=== PATIENT | female | born 1990 | race Caucasian/White ===

== ENCOUNTER 2018-12-16 02:35 | Emergency (ER) | payer MEDICAID ==
[~2018-12-16] VITALS: Ht 167.6 cm; Wt 63.6 kg
[2018-12-16] MEDS ORDERED: ONDANSETRON ODT 4 MG ONE (02:49)
[2018-12-16] MEDS ORDERED: ONDANSETRON ODT 4 MG PO ONE (03:00)
--- NOTE | 2018-12-16 03:31 | NUR ---
PT. UNABLE TO MAINTAIN BALANCE WHEN ATTEMPTING TO STAND AT SIDE OF BED. PT. ASSISTED BACK TO POSITION OF COMFORT AND CONTINUOUS PULSE OX RE-APPLIED. NO DISTRESS NOTED. CALL LIGHT IS IN REACH. WILL CONTINUE TO MONITOR.
--- NOTE | 2018-12-16 04:42 | NUR ---
ATTEMPTED TO HAVE PT. AMBULATE. PT. UNABLE TO SIT UP AT EDGE OF BED ON HER OWN. UNABLE TO D/C PT. AT THIS TIME. PT. STATES SHE HAS NO FRIENDS/FAMILY TO PICK HER UP. WILL CONTINUE TO MONITOR. ASSISTED BACK TO [place] AND ALL SAFETY MEASURES OBSERVED. CONTINUOUS PULSE OX REAMAINS IN PLACE.
[2018-12-16 05:41] VITALS: BP 120/84
== END 2018-12-16 05:44 | disposition home or self-care (01) ==
LOC: ED 05:42
DX: F10.120 Alcohol abuse with intoxication, uncomplicated (principal); D64.9 Anemia, unspecified; Y90.9 Presence of alcohol in blood, level not specified
CPT/HCPCS: 99283; Q0162